=== PATIENT | female | born 1955 | race Caucasian/White ===

== ENCOUNTER 2017-06-28 05:52 | Day surgery (SDC) | payer BC ==
[~2017-06-28] VITALS: Ht 170.2 cm; Wt 83.5 kg
[~2017-06-28 05:52] MED LIST: LEVA500T PO; RIVA15 PO; RIVA20 PO
[2017-06-28] MEDS ORDERED: IOHEXOL 350 MG/ML 50 ML BTL (for Cath Lab) OTHER ONE (05:53)
[2017-06-28 06:45] VITALS: BP 132/65; PULSE 67; RESP 20; O2SAT 98
--- NOTE | 2017-06-28 07:21 | HHI.HP ---
History of Present Illness Chief Complaint: DVT/PE and need for podiatric surgery History of Present Illness 62 yo female with h/o L LE orthopedic injury and scheduled for L complex podiatric procedure. 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 Her prior DVT/PE events were provoked (around surgery). Presents for IVCF placement, which will tentatively be retrievable. Past/Family/Social History Past Medical History orthopedic injury DVT/PE Past Surgical History podiatric procedure Social History nonsmoker Family History no significant DVT/PE Home Medications Active Scripts Levofloxacin (Levaquin 500 Mg Tab) 500 Mg Tab, 500 MG PO DAILY for infection for 5 Days, TAB 0 Refills Prov:Yakelin Salazar MD 04/28/16 Rivaroxaban (Xarelto 20 Mg Tab) 20 Mg Tab, 20 MG PO DAILY for pe for 30 Days, TAB 0 Refills Prov:Yakelin Salazar MD 04/28/16 Rivaroxaban (Xarelto 15 Mg Tab) 15 Mg Tab, 15 MG PO BID for pe for 21 Days, TAB 0 Refills Prov:Yakelin Salazar MD 04/28/16 Coded Allergies: morphine (Unverified Allergy, Unknown, 04/17/17) Review of Systems Constitutional: DENIES: Fever, Chills Cardiovascular: DENIES: Chest pain Physical Exam Neuro: alert, oriented, no distress HEENT: NC/AT; anicteric sclera Neck: no JVD Heart: reg rate Lungs: nonlabored breathing Abdomen: nontender Caprini VTE Risk Assessment Caprini VTE Risk Assessment: No/Low Risk (score <= 1) Caprini Risk Assessment Model Point Value = 1 Point Value = 2 Point Value = 3 Point Value = 5 Age 41-60 Minor surgery BMI > 25 kg/m2 Swollen legs Varicose veins or History of unexplained or recurrent spontaneous Oral contraceptives or hormone replacement Sepsis (< 1 month) Serious lung disease, including pneumonia (< 1 month) Abnormal pulmonary function Acute myocardial infarction Congestive heart failure (< 1 month) History of inflammatory bowel disease Medical patient at bed rest Age 61-74 Arthroscopic surgery Major open surgery (> 45 min) Laparoscopic surgery (> 45 min) Malignancy Confined to bed (> 72 hours) Immobilizing plaster cast Central venous access Age >= 75 History of VTE Family history of VTE Factor V Leiden Prothrombin [id number] Lupus anticoagulant Anticardiolipin antibodies Elevated serum homocysteine Heparin-induced thrombocytopenia Other congenital or acquired thrombophilia Stroke (< 1 month) Elective arthroplasty Hip, pelvis, or leg fracture Acute spinal cord injury (< 1 month) Prophylaxis Regimen Total Risk Factor Score Risk Level Prophylaxis Regimen 0-1 Low Early ambulation 2 Moderate Order ONE of the following: *Sequential Compression Device (SCD) *Heparin 5000 units SQ BID 3-4 Higher Order ONE of the following medications: *Heparin 5000 units SQ TID *Enoxaparin/Lovenox 40 mg SQ daily (WT < 150 kg, CrCl > 30 mL/min) *Enoxaparin/Lovenox 30 mg SQ daily (WT < 150 kg, CrCl > 10-29 mL/min) *Enoxaparin/Lovenox 30 mg SQ BID (WT < 150 kg, CrCl > 30 mL/min) AND/OR *Sequential Compression Device (SCD) 5 or more Highest Order ONE of the following medications: *Heparin 5000 units SQ TID (Preferred with Epidurals) *Enoxaparin/Lovenox 40 mg SQ daily (WT < 150 kg, CrCl > 30 mL/min) *Enoxaparin/Lovenox 30 mg SQ daily (WT < 150 kg, CrCl > 10-29 mL/min) *Enoxaparin/Lovenox 30 mg SQ BID (WT < 150 kg, CrCl > 30 mL/min) AND *Sequential Compression Device (SCD) Assessment and Plan Plan Plan for prophylactic IVCF prior to podiatric procedure with prolonged anticipated immobility in a lady with prior provoked DVT/PE. Rashaun Meade MD Jun 28, 2017 07:21
[2017-06-28] MEDS ORDERED: XARE15TA PO (07:37)
[2017-06-28] MEDS ORDERED: HEPARIN-NS/PF INJ 1,000 ML ONE (08:01)
[2017-06-28] MEDS ORDERED: HEPARIN SODIUM - IV 10,000 UNITS/10 ML VIAL ONE (08:02)
[2017-06-28] MEDS ORDERED: MIDAZOLAM HCL 2 MG/2 ML VIAL ONE (08:02)
[2017-06-28] MEDS ORDERED: ceFAZolin INJ 1,000 MG VIAL ONE (08:18)
--- NOTE | 2017-06-28 08:52 | CATHPROC ---
[employer] HIS Report Study Information Study Number Admission Scheduled Start Study Start [id number] Jun 28 2017 5:52AM 06/28/2017 Jun 28 2017 8:05AM [place] [facility] Cath Endovascular Study Admit Source Facility Department Emergency department [facility] - Plumbing Installer Physician and Clinical Staff Initial Rashaun Tao Svp Digital Ad Sales Kymberly Rosas,RN Recorder Markos Barriga,RT(R) ScrMarian Varner,RT(R) (BS) Procedures Performed Procedure Location (Site) Vessel Name Wire insertion Fem Vein (right) Femoral Vein Equipment Time Securities Adviser Description Size Mfg Part Number Used/Scraped INTRODUCER SET, 08:10 [employer]. FR 5 [id number] *[id number] Used MICROPUNCTURE, STIFFENED FILTER, CELECT INUPIAT VENA 08:29 COOK/EZEKIEL FR 7 [id number] Used CAVA WIRE, STORQ STANDARD MOD J [id number] 08:21 CORDIS/ EZEKIEL 300CM Used 300CM *[id number] *[id number] 08:10 [employer] INDUSTRIES PACK, CCL CUSTOM * Used *[id number] 08:10 [employer] MEDICAL PRESSURE TUBING 48" 48" [id number] 08:10 Fate TherapeuticsIC TUBING, HIGH PRESSURE 20" 20" Used *[id number] 08:10 NYCOMED OMNIPAQUE, 300 MG, 150ML 150ML [id number] Used 08:10 NYCOMED OMNIPAQUE, 300 MG, 50ML 50ML [id number] Used [id number] 08:10 O[employer]ED[employer] MEDICAL BLANKET,WARM AIR CCL * Used *[id number] Equipment Model, Serial, Lot Number and Expiration Data Description Model Number Serial Number Lot Number Expiration Date FILTER, CELECT INUPIAT VENA [id number] 03-02-2018 CAVA History: Allergies Allergy Reaction morphine Medication Medication Total Dose (Bolus/Oral) Medication Total Dosage/Unit 1% XYLOCAINE 20 mL FENTANYL 25 mcg VERSED 1 mg Medications (Bolus/Oral) Medication Time Given Dosage/Unit Administered By Reason 1% XYLOCAINE 06/28/2017 8:16:35 AM 20 mL Rashaun Meade 20 mL 1% XYLOCAINE given in lab by Rashaun Meade in Right Groin via Subcutaneous. Ordered by Rashaun Meade. VERSED 06/28/2017 8:18:45 AM 1 mg Kymberly Rosas 1 mg VERSED given in lab by Kymberly Rosas RN in Left Antecubital via Peripheral IV. Ordered by Rashaun Martinez. FENTANYL 06/28/2017 8:19:34 AM 25 mcg Kymberly Rosas 25 mcg FENTANYL given in lab by Kymberly Rosas RN in Left Antecubital via Peripheral IV. Ordered by Rashaun Meade. Medication (Drip) Medication Time Given Dosage/Unit Concentration/Unit Diluent (ml) Solution ANCEF 06/28/2017 8:21:40 AM 2 g 2 g ANCEF given in lab by Kymberly Rosas RN via Peripheral IV. Ordered by Rashaun Meade. IV Solutions 06/28/2017 8:15:21 AM 0 mL (IV) 500 NaCl .9 Patient arrived on IV Solutions given by Rashaun Meade in Left Antecubital via Peripheral IV. Pump/D rip Flow = 20 ml/hr using NaCl .9. Ordered by Rashaun Meade. Initial Case Assessment Cardiovascular HR Rhythm NIBP Chest Pain 73 sr 129/45 0 Edema Present Skin color Skin None Normal Warm Dry Circulatory - Right Pulses Dorsalis Pedis Femoral 2 2 Scale (0,1,2,3,4,d) Circulatory - Left Pulses Dorsalis Pedis Femoral 2 2 Scale (0,1,2,3,4,d) Neurological State Oriented to time-place- Alert Moves all extremities person Respiration - General Respiration Rate SpO2 (%) O2 (lpm) (B/min) 18 99 0 Chronological Log Time Study Chronological Log 8:05:27 Patient arrived via Bed. 8:05:28 Patient Name, D.O.B, / Armband Verified By R.N. 8:05:30 Consent signed by the physician and the patient and verified by the Plumbing Installer staff. 8:05:31 Pre-op and post- op instructions given; patient acknowledges understanding of instructions. 8:09:40 Reference ECG taken Vitals capture started with the following parameters, Patient=Adult, Interval=5 min, Initial Pr cgyaty=991 mmHg, 8:12:50 Deflation Rate=5 mmHg, Cuff placed on Right Arm 8:13:31 HR=77 bpm, LQMP=068/45 mmhg, SpO2=98.0 %, Resp=11 B/min, Bell=2 8:13:58 Presedation assessment performed by Plumbing Installer RN. 8:14:22 Patient has been NPO for More than 6Hrs. 8:14:24 Skin Breakdown-none present per patient 8:14:41 A # 20 IV was noted in the Antecubital (left). Grade = 0 Patient arrived on IV Solutions given by Rashaun Meade in Left Antecubital via Peripheral IV. Pump/Drip Flow = 20 ml/hr 8:15:21 using NaCl .9. Ordered by Rashaun Meade. 8:15:42 History and physical on the chart or being dictated. Assessment: Initial Case, HR=73 BPM, Rhythm=sr, HSOY=293/45 mmhg, Chest Pain=0, Edema=None, Col or=Normal, Skin = Warm, Dry Right Pulses: Romain Ped=2, Femoral=2 8:15:44 Left Pulses: Romain Ped=2, Femoral=2 Neurological: State=Alert, Ox3, BAEZ Respiration: Resp=18 B/min, SpO2=99 %, O2=0 lpm 8:16:09 Bilateral groins prepped with 2% chlorhexidine, and draped after a 3 minute waiting time. Time Out. Correct patient, correct procedure, correct physician, power injector loaded, or not l oaded with contrast with 8:16:23 surgical team present. Time Out Concurred by MD and individual staff in procedure. 8:16:28 Case Start 8:16:29 Verbal Stimulation=2 Physical Stimulation=2 Airway=2 Respiration=2 TOTAL=8. (0=absent, 1=farr ited, 2=present) 8:16:35 20 mL 1% XYLOCAINE given in lab by Rashaun Meade in Right Groin via Subcutaneous. Ordered Rashaun Hester. 8:16:46 Access site was Right Femoral Vein. 8:18:30 HR=77 bpm, VFON=104/51 mmhg, SpO2=98.0 %, Resp=15 B/min, Bell=2 8:18:45 1 mg VERSED given in lab by Kymberly Rosas, CATHERINE in Left Antecubital via Peripheral IV. Order ed by Rashaun Meade. 8:19:34 25 mcg FENTANYL given in lab by Kymberly Rosas, CATHERINE in Left Antecubital via Peripheral IV. O rdered by Rashaun Meade. 8:20:22 A WIRE, STORQ STANDARD MOD J 300CM 300CM was inserted via Fem Vein (right). 8:21:40 2 g ANCEF given in lab by Kymberly Rosas RN via Peripheral IV. Ordered by Rashaun Meade. A SHEATH, FR8.5 JAMIE 11CM FR 8 was exchanged in the Fem Vein (right). This was necessary in or liss to 8:22:50 accomodate a larger catheter. IVC 8:23:31 HR=74 bpm, QUVA=426/57 mmhg, SpO2=97.0 %, Resp=20 B/min, Bell=2 8:28:30 HR=74 bpm, QDRA=809/53 mmhg, SpO2=96.0 %, Resp=29 B/min, Bell=2 8:30:47 A catheter was advanced over a wire. contrast was used for injections. .035 Ivus catheter in serted. 8:31:20 .035 IVUS catheter in use in IVC 8:32:59 IVUS Catheter was removed 8:33:27 HR=70 bpm, RLDG=063/55 mmhg, SpO2=97.0 %, Resp=17 B/min, Bell=2 A sheath was exchanged in the Fem Vein (right). This was necessary in order to accomodate a larg er catheter. IVC 8:34:46 Filter sheath inserted. 8:35:25 A FILTER, CELECT INUPIAT VENA CAVA FR 7 was placed in the IVC. 8:38:28 HR=69 bpm, IQQO=184/46 mmhg, SpO2=97.0 %, Resp=15 B/min, Bell=2 8:38:40 Sheath removed; pressure applied to access site. 8:39:24 Case End 8:43:29 HR=67 bpm, WHIZ=562/49 mmhg, SpO2=96.0 %, Resp=16 B/min, Bell=2 8:45:57 Sterile dressing applied to site 8:45:59 No case complications noted. 8:46:01 Cine recording checked. 8:46:04 Implantable Device card placed in patient's chart. 8:46:09 Contrast Scanned 8:47:10 Patient moved to stretcher 8:48:20 Vitals capture stopped. 8:50:02 Patient moved to stretcher End Study - Contrast Media Used In Study Contrast Total Opened (mL) Total Used (mL) Total Wasted (mL) Omnipaque 35 35 0 End Study - Radiation Exposure Fluoro Time (minutes) 2.6 End Study - Patient Disposition Complications Transferred To No Telemetry Bed
--- NOTE | 2017-06-28 08:52 | CATHPROC ---
[facility] HIS Report Study Information Study Number Admission Scheduled Start Study Start [id number] Jun 28 2017 5:52AM 06/28/2017 Jun 28 2017 8:05AM [place] [facility] Cath Endovascular Study Admit Source Facility Department Emergency department [facility] - Blowing Engineer Physician and Clinical Staff Initial Rashaun Tao Heel Attacher Kymberly Rosas,RN Recorder Markos Barriga,RT(R) ScrMarian Varner,RT(R) (BS) Procedures Performed Procedure Location (Site) Vessel Name Wire insertion Fem Vein (right) Femoral Vein Equipment Time Digital Court Reporter Description Size Mfg Part Number Used/Scraped INTRODUCER SET, 08:10 [employer] FR 5 [id number] *[id number] Used MICROPUNCTURE, STIFFENED FILTER, CELECT [place] VENA 08:29 COOK/EZEKEIL FR 7 [id number] Used CAVA WIRE, STORQ STANDARD MOD J [id number] 08:21 CORDIS/ EZEKIEL 300CM Used 300CM *[id number] *[id number] 08:10 [employer] INDUSTRIES PACK, CCL CUSTOM * Used *[id number] 08:10 [employer] MEDICAL PRESSURE TUBING 48" 48" [id number] Used [id number] 08:10 [employer] TUBING, HIGH PRESSURE 20" 20" Used *[id number] 08:10 NYCOMED OMNIPAQUE, 300 MG, 150ML 150ML [id number] Used 08:10 NYCOMED OMNIPAQUE, 300 MG, 50ML 50ML [id number] Used [id number] 08:10 [employer] MEDICAL BLANKET,WARM AIR CCL * Used *[id number] Equipment Model, Serial, Lot Number and Expiration Data Description Model Number Serial Number Lot Number Expiration Date FILTER, CELECT [place]ATAWBA VENA [id number] 03-02-2018 CAVA History: Allergies Allergy Reaction morphine Medication Medication Total Dose (Bolus/Oral) Medication Total Dosage/Unit 1% XYLOCAINE 20 mL FENTANYL 25 mcg VERSED 1 mg Medications (Bolus/Oral) Medication Time Given Dosage/Unit Administered By Reason 1% XYLOCAINE 06/28/2017 8:16:35 AM 20 mL Rashaun Meade 20 mL 1% XYLOCAINE given in lab by Rashaun Meade in Right Groin via Subcutaneous. Ordered by Rashaun Meade. VERSED 06/28/2017 8:18:45 AM 1 mg Kymberly Rosas 1 mg VERSED given in lab by Kymberly Rosas RN in Left Antecubital via Peripheral IV. Ordered by Rashaun Martinez. FENTANYL 06/28/2017 8:19:34 AM 25 mcg Kymberly Rosas 25 mcg FENTANYL given in lab by Kymberly Rosas RN in Left Antecubital via Peripheral IV. Ordered by Rashaun Meade. Medication (Drip) Medication Time Given Dosage/Unit Concentration/Unit Diluent (ml) Solution ANCEF 06/28/2017 8:21:40 AM 2 g 2 g ANCEF given in lab by Kymberly Rosas RN via Peripheral IV. Ordered by Rashaun Meade. IV Solutions 06/28/2017 8:15:21 AM 0 mL (IV) 500 NaCl .9 Patient arrived on IV Solutions given by Rashaun Meade in Left Antecubital via Peripheral IV. Pump/D rip Flow = 20 ml/hr using NaCl .9. Ordered by Rashaun Meade. Initial Case Assessment Cardiovascular HR Rhythm NIBP Chest Pain 73 sr 129/45 0 Edema Present Skin color Skin None Normal Warm Dry Circulatory - Right Pulses Dorsalis Pedis Femoral 2 2 Scale (0,1,2,3,4,d) Circulatory - Left Pulses Dorsalis Pedis Femoral 2 2 Scale (0,1,2,3,4,d) Neurological State Oriented to time-place- Alert Moves all extremities person Respiration - General Respiration Rate SpO2 (%) O2 (lpm) (B/min) 18 99 0 Chronological Log Time Study Chronological Log 8:05:27 Patient arrived via Bed. 8:05:28 Patient Name, D.O.B, / Armband Verified By R.N. 8:05:30 Consent signed by the physician and the patient and verified by the Blowing Engineer staff. 8:05:31 Pre-op and post- op instructions given; patient acknowledges understanding of instructions. 8:09:40 Reference ECG taken Vitals capture started with the following parameters, Patient=Adult, Interval=5 min, Initial Pr onqddj=399 mmHg, 8:12:50 Deflation Rate=5 mmHg, Cuff placed on Right Arm 8:13:31 HR=77 bpm, KSZG=613/45 mmhg, SpO2=98.0 %, Resp=11 B/min, Bell=2 8:13:58 Presedation assessment performed by Blowing Engineer RN. 8:14:22 Patient has been NPO for More than 6Hrs. 8:14:24 Skin Breakdown-none present per patient 8:14:41 A # 20 IV was noted in the Antecubital (left). Grade = 0 Patient arrived on IV Solutions given by Rashaun Meade in Left Antecubital via Peripheral IV. Pump/Drip Flow = 20 ml/hr 8:15:21 using NaCl .9. Ordered by Rashaun Meade. 8:15:42 History and physical on the chart or being dictated. Assessment: Initial Case, HR=73 BPM, Rhythm=sr, GEBQ=703/45 mmhg, Chest Pain=0, Edema=None, Col or=Normal, Skin = Warm, Dry Right Pulses: Romain Ped=2, Femoral=2 8:15:44 Left Pulses: Romain Ped=2, Femoral=2 Neurological: State=Alert, Ox3, BAEZ Respiration: Resp=18 B/min, SpO2=99 %, O2=0 lpm 8:16:09 Bilateral groins prepped with 2% chlorhexidine, and draped after a 3 minute waiting time. Time Out. Correct patient, correct procedure, correct physician, power injector loaded, or not l oaded with contrast with 8:16:23 surgical team present. Time Out Concurred by MD and individual staff in procedure. 8:16:28 Case Start 8:16:29 Verbal Stimulation=2 Physical Stimulation=2 Airway=2 Respiration=2 TOTAL=8. (0=absent, 1=farr ited, 2=present) 8:16:35 20 mL 1% XYLOCAINE given in lab by Rashaun Meade in Right Groin via Subcutaneous. Ordered Rashaun Hester. 8:16:46 Access site was Right Femoral Vein. 8:18:30 HR=77 bpm, AICD=971/51 mmhg, SpO2=98.0 %, Resp=15 B/min, Bell=2 8:18:45 1 mg VERSED given in lab by Kymberly Rosas, CATHERINE in Left Antecubital via Peripheral IV. Order ed by Rashaun Meade. 8:19:34 25 mcg FENTANYL given in lab by Kymberly Rosas, CATHERINE in Left Antecubital via Peripheral IV. O rdered by Rashaun Meade. 8:20:22 A WIRE, STORQ STANDARD MOD J 300CM 300CM was inserted via Fem Vein (right). 8:21:40 2 g ANCEF given in lab by Kymberly Rosas RN via Peripheral IV. Ordered by Rashaun Meade. A SHEATH, FR8.5 JAMIE 11CM FR 8 was exchanged in the Fem Vein (right). This was necessary in or liss to 8:22:50 accomodate a larger catheter. IVC 8:23:31 HR=74 bpm, EWUS=249/57 mmhg, SpO2=97.0 %, Resp=20 B/min, Bell=2 8:28:30 HR=74 bpm, VFSW=460/53 mmhg, SpO2=96.0 %, Resp=29 B/min, Bell=2 8:30:47 A catheter was advanced over a wire. contrast was used for injections. .035 Ivus catheter in serted. 8:31:20 .035 IVUS catheter in use in IVC 8:32:59 IVUS Catheter was removed 8:33:27 HR=70 bpm, FLAN=591/55 mmhg, SpO2=97.0 %, Resp=17 B/min, Bell=2 A sheath was exchanged in the Fem Vein (right). This was necessary in order to accomodate a larg er catheter. IVC 8:34:46 Filter sheath inserted. 8:35:25 A FILTER, CELECT CATAWBA VENA CAVA FR 7 was placed in the IVC. 8:38:28 HR=69 bpm, DYVT=625/46 mmhg, SpO2=97.0 %, Resp=15 B/min, Bell=2 8:38:40 Sheath removed; pressure applied to access site. 8:39:24 Case End 8:43:29 HR=67 bpm, JELF=281/49 mmhg, SpO2=96.0 %, Resp=16 B/min, Bell=2 8:45:57 Sterile dressing applied to site 8:45:59 No case complications noted. 8:46:01 Cine recording checked. 8:46:04 Implantable Device card placed in patient's chart. 8:46:09 Contrast Scanned 8:47:10 Patient moved to stretcher 8:48:20 Vitals capture stopped. 8:50:02 Patient moved to stretcher End Study - Contrast Media Used In Study Contrast Total Opened (mL) Total Used (mL) Total Wasted (mL) Omnipaque 35 35 0 End Study - Radiation Exposure Fluoro Time (minutes) 2.6 End Study - Patient Disposition Complications Transferred To No Telemetry Bed
--- NOTE | 2017-06-28 08:52 | CATHPROC ---
[employer] HIS Report Study Information Study Number Admission Scheduled Start Study Start [id number] Jun 28 2017 5:52AM 06/28/2017 Jun 28 2017 8:05AM [place] Service Cath Endovascular Study Admit Source Facility Department Emergency department [facility] - Plate Painter Physician and Clinical Staff Initial Rashaun Tao Career Placement Services Counselor Kymberly Rosas,RN Recorder Markos Barriga,RT(R) ScrMarian Varner,RT(R) (BS) Procedures Performed Procedure Location (Site) Vessel Name Wire insertion Fem Vein (right) Femoral Vein Equipment Time Civil Technician Description Size Mfg Part Number Used/Scraped INTRODUCER SET, 08:10 [employer] FR 5 [id number] *[id number] Used MICROPUNCTURE, STIFFENED FILTER, CELECT [place] VENA 08:29 COOK/EZEKIEL FR 7 [id number] Used CAVA WIRE, STORQ STANDARD MOD J [id number] 08:21 CORDIS/ EZEKIEL 300CM Used 300CM *[id number] *[id number] 08:10 [employer] INDUSTRIES PACK, CCL CUSTOM * Used *[id number] 08:10 [employer] MEDICAL PRESSURE TUBING 48" 48" [id number] Used [id number] 08:10 [employer] TUBING, HIGH PRESSURE 20" 20" Used *[id number] 08:10 [employer] OMNIPAQUE, 300 MG, 150ML 150ML [id number] Used 08:10 NYCOMED OMNIPAQUE, 300 MG, 50ML 50ML [id number] Used [id number] 08:10 [employer] MEDICAL BLANKET,WARM AIR CCL * Used *[id number] Equipment Model, Serial, Lot Number and Expiration Data Description Model Number Serial Number Lot Number Expiration Date FILTER, CELECT [place] VENA [id number] 03-02-2018 CAVA History: Allergies Allergy Reaction morphine Medication Medication Total Dose (Bolus/Oral) Medication Total Dosage/Unit 1% XYLOCAINE 20 mL FENTANYL 25 mcg VERSED 1 mg Medications (Bolus/Oral) Medication Time Given Dosage/Unit Administered By Reason 1% XYLOCAINE 06/28/2017 8:16:35 AM 20 mL Rashaun Meade 20 mL 1% XYLOCAINE given in lab by Rashaun Meade in Right Groin via Subcutaneous. Ordered by Rashaun Meade. VERSED 06/28/2017 8:18:45 AM 1 mg Kymberly Rosas 1 mg VERSED given in lab by Kymberly Rosas RN in Left Antecubital via Peripheral IV. Ordered by Rashaun Martinez. FENTANYL 06/28/2017 8:19:34 AM 25 mcg Kymberly Rosas 25 mcg FENTANYL given in lab by Kymberly Rosas RN in Left Antecubital via Peripheral IV. Ordered by Rashaun Meade. Medication (Drip) Medication Time Given Dosage/Unit Concentration/Unit Diluent (ml) Solution ANCEF 06/28/2017 8:21:40 AM 2 g 2 g ANCEF given in lab by Kymberly Rosas RN via Peripheral IV. Ordered by Rashaun Meade. IV Solutions 06/28/2017 8:15:21 AM 0 mL (IV) 500 NaCl .9 Patient arrived on IV Solutions given by Rashaun Meade in Left Antecubital via Peripheral IV. Pump/D rip Flow = 20 ml/hr using NaCl .9. Ordered by Rashaun Meade. Initial Case Assessment Cardiovascular HR Rhythm NIBP Chest Pain 73 sr 129/45 0 Edema Present Skin color Skin None Normal Warm Dry Circulatory - Right Pulses Dorsalis Pedis Femoral 2 2 Scale (0,1,2,3,4,d) Circulatory - Left Pulses Dorsalis Pedis Femoral 2 2 Scale (0,1,2,3,4,d) Neurological State Oriented to time-place- Alert Moves all extremities person Respiration - General Respiration Rate SpO2 (%) O2 (lpm) (B/min) 18 99 0 Chronological Log Time Study Chronological Log 8:05:27 Patient arrived via Bed. 8:05:28 Patient Name, D.O.B, / Armband Verified By R.N. 8:05:30 Consent signed by the physician and the patient and verified by the Plate Painter staff. 8:05:31 Pre-op and post- op instructions given; patient acknowledges understanding of instructions. 8:09:40 Reference ECG taken Vitals capture started with the following parameters, Patient=Adult, Interval=5 min, Initial Pr wmxjcl=676 mmHg, 8:12:50 Deflation Rate=5 mmHg, Cuff placed on Right Arm 8:13:31 HR=77 bpm, IWGZ=954/45 mmhg, SpO2=98.0 %, Resp=11 B/min, Bell=2 8:13:58 Presedation assessment performed by Plate Painter RN. 8:14:22 Patient has been NPO for More than 6Hrs. 8:14:24 Skin Breakdown-none present per patient 8:14:41 A # 20 IV was noted in the Antecubital (left). Grade = 0 Patient arrived on IV Solutions given by Rashaun Meade in Left Antecubital via Peripheral IV. Pump/Drip Flow = 20 ml/hr 8:15:21 using NaCl .9. Ordered by Rashaun Meade. 8:15:42 History and physical on the chart or being dictated. Assessment: Initial Case, HR=73 BPM, Rhythm=sr, HWCV=988/45 mmhg, Chest Pain=0, Edema=None, Col or=Normal, Skin = Warm, Dry Right Pulses: Romain Ped=2, Femoral=2 8:15:44 Left Pulses: Romain Ped=2, Femoral=2 Neurological: State=Alert, Ox3, BAEZ Respiration: Resp=18 B/min, SpO2=99 %, O2=0 lpm 8:16:09 Bilateral groins prepped with 2% chlorhexidine, and draped after a 3 minute waiting time. Time Out. Correct patient, correct procedure, correct physician, power injector loaded, or not l oaded with contrast with 8:16:23 surgical team present. Time Out Concurred by MD and individual staff in procedure. 8:16:28 Case Start 8:16:29 Verbal Stimulation=2 Physical Stimulation=2 Airway=2 Respiration=2 TOTAL=8. (0=absent, 1=farr ited, 2=present) 8:16:35 20 mL 1% XYLOCAINE given in lab by Rashaun Meade in Right Groin via Subcutaneous. Ordered Rashaun Hester. 8:16:46 Access site was Right Femoral Vein. 8:18:30 HR=77 bpm, QEJP=991/51 mmhg, SpO2=98.0 %, Resp=15 B/min, Bell=2 8:18:45 1 mg VERSED given in lab by Kymberly Rosas, CATHERINE in Left Antecubital via Peripheral IV. Order ed by Rashaun Meade. 8:19:34 25 mcg FENTANYL given in lab by Kymberly Rosas, CATHERINE in Left Antecubital via Peripheral IV. O rdered by Rashaun Meade. 8:20:22 A WIRE, STORQ STANDARD MOD J 300CM 300CM was inserted via Fem Vein (right). 8:21:40 2 g ANCEF given in lab by Kymberly Rosas RN via Peripheral IV. Ordered by Rashaun Meade. A SHEATH, FR8.5 JAMIE 11CM FR 8 was exchanged in the Fem Vein (right). This was necessary in or liss to 8:22:50 accomodate a larger catheter. IVC 8:23:31 HR=74 bpm, ZXYH=196/57 mmhg, SpO2=97.0 %, Resp=20 B/min, Bell=2 8:28:30 HR=74 bpm, UEEH=832/53 mmhg, SpO2=96.0 %, Resp=29 B/min, Bell=2 8:30:47 A catheter was advanced over a wire. contrast was used for injections. .035 Ivus catheter in serted. 8:31:20 .035 IVUS catheter in use in IVC 8:32:59 IVUS Catheter was removed 8:33:27 HR=70 bpm, FRYY=825/55 mmhg, SpO2=97.0 %, Resp=17 B/min, Bell=2 A sheath was exchanged in the Fem Vein (right). This was necessary in order to accomodate a larg er catheter. IVC 8:34:46 Filter sheath inserted. 8:35:25 A FILTER, CELECT [place] VENA CAVA FR 7 was placed in the IVC. 8:38:28 HR=69 bpm, BFAC=702/46 mmhg, SpO2=97.0 %, Resp=15 B/min, Bell=2 8:38:40 Sheath removed; pressure applied to access site. 8:39:24 Case End 8:43:29 HR=67 bpm, AMAE=593/49 mmhg, SpO2=96.0 %, Resp=16 B/min, Bell=2 8:45:57 Sterile dressing applied to site 8:45:59 No case complications noted. 8:46:01 Cine recording checked. 8:46:04 Implantable Device card placed in patient's chart. 8:46:09 Contrast Scanned 8:47:10 Patient moved to stretcher 8:48:20 Vitals capture stopped. 8:50:02 Patient moved to stretcher End Study - Contrast Media Used In Study Contrast Total Opened (mL) Total Used (mL) Total Wasted (mL) Omnipaque 35 35 0 End Study - Radiation Exposure Fluoro Time (minutes) 2.6 End Study - Patient Disposition Complications Transferred To No Telemetry Bed
--- NOTE | 2017-06-28 08:57 | HHI.PR ---
cc: Waldemar Buchanan DPM Immediate Post Op Note Procedure Date: Jun 28, 2017 Pre Op Diagnosis: DVT/PE and need for major foot surgery Post Op Diagnosis: same Surgeon: Rashaun Meade Passenger Service Manager(s): none Procedure: 1. IVC filter placement 2. IVUS Findings: filter placed infrarenally Complications: none Specimen(s) removed: none Estimated blood loss: 5mL Drains: None Fluids: 200mL IVF Patient to: Other (DOCU) Patient Condition: Good Implant/Devices: SEE IMPLANT LOG (if applicable) Date/Time of Procedure: SEE SURGICAL CARE RECORD Rashaun Meade MD Jun 28, 2017 08:57
--- NOTE | 2017-06-28 13:17 | MP ---
cc: RASHAUN MEADE MD DATE OF SURGERY 06/28/2017 PREOPERATIVE DIAGNOSIS DVT, PE and need for orthopedic surgery. POSTOPERATIVE DIAGNOSIS DVT, PE and need for orthopedic surgery. PROCEDURE 1. Intravascular ultrasound of the inferior vena cava. 2. IVC filter placement. ATTENDING SURGEON Rashaun Meade MD RESIDENT/WAREHOUSE REPRESENTATIVE SURGEON None. ANESTHESIA Local with sedation. INDICATIONS Ms. Branham is a 62-year-old lady who has a DVT and a PE. They were both provoked. She was on life-long anticoagulation. She needs major podiatric surgery and will have prolonged immobilization. Based on her constellation of risk factors, we offered her a prophylactic retrieval IVC filter. Intraoperatively the venacavogram showed that the patient had an enlarged IVC and so an intravascular ultrasound was performed to determine the true diameter of the inferior vena cava. DESCRIPTION OF PROCEDURE Informed consent was obtained. The patient was taken to the operating room and placed supine on the operating room table. An appropriate time-out was taken to identify the patient, the operative site and the planned procedure. The Ancef will be discontinued after a single preoperative dose. Everyone in the room agreed with the time-out and we proceeded. Her bilateral groins were prepped and draped and the right groin was anesthetized with 1% lidocaine. A 21-gauge micropuncture needle was used to access the right common femoral vein. This was exchanged using Seldinger technique for the micropuncture sheath through which a 0.035 Stork wire was introduced and the micropuncture sheath was exchanged for the Cook Celect filter deployment sheath. This was positioned up in the inferior vena cava and a venacavogram obtained. The venacavogram showed the vena cava to be wide and appeared to be wider than 30 mm. As such, the filter sheath was removed and an 8-East [place]orese sheath was introduced and intravascular ultrasound catheter was placed. Images of the inferior vena cava were obtained and found the diameter was indeed 28 mm. The IVUS catheters and the 8-[place]orese sheath were removed and the filter sheath was reintroduced and the filter was deployed without difficulty. Completion venacavogram showed the filter to be in an infrarenal location. The catheter and sheath were removed, pressure held for hemostasis. There were no complications. I was present and scrubbed and performed the entire procedure. MD HERNESTO Schmitz/SSB /8:59 AM /1:00 PM
--- NOTE | 2017-06-28 13:17 | MP ---
cc: RASHAUN MEADE MD DATE OF SURGERY 06/28/2017 PREOPERATIVE DIAGNOSIS DVT, PE and need for orthopedic surgery. POSTOPERATIVE DIAGNOSIS DVT, PE and need for orthopedic surgery. PROCEDURE 1. Intravascular ultrasound of the inferior vena cava. 2. IVC filter placement. ATTENDING SURGEON Rashaun Meade MD RESIDENT/GROUND PRODUCTS DIRECTOR SURGEON None. ANESTHESIA Local with sedation. INDICATIONS Ms. Branham is a 62-year-old lady who has a DVT and a PE. They were both provoked. She was on life-long anticoagulation. She needs major podiatric surgery and will have prolonged immobilization. Based on her constellation of risk factors, we offered her a prophylactic retrieval IVC filter. Intraoperatively the venacavogram showed that the patient had an enlarged IVC and so an intravascular ultrasound was performed to determine the true diameter of the inferior vena cava. DESCRIPTION OF PROCEDURE Informed consent was obtained. The patient was taken to the operating room and placed supine on the operating room table. An appropriate time-out was taken to identify the patient, the operative site and the planned procedure. The Ancef will be discontinued after a single preoperative dose. Everyone in the room agreed with the time-out and we proceeded. Her bilateral groins were prepped and draped and the right groin was anesthetized with 1% lidocaine. A 21-gauge micropuncture needle was used to access the right common femoral vein. This was exchanged using Seldinger technique for the micropuncture sheath through which a 0.035 Stork wire was introduced and the micropuncture sheath was exchanged for the Cook Celect filter deployment sheath. This was positioned up in the inferior vena cava and a venacavogram obtained. The venacavogram showed the vena cava to be wide and appeared to be wider than 30 mm. As such, the filter sheath was removed and an 8-Bahamian sheath was introduced and intravascular ultrasound catheter was placed. Images of the inferior vena cava were obtained and found the diameter was indeed 28 mm. The IVUS catheters and the 8-Bahamian sheath were removed and the filter sheath was reintroduced and the filter was deployed without difficulty. Completion venacavogram showed the filter to be in an infrarenal location. The catheter and sheath were removed, pressure held for hemostasis. There were no complications. I was present and scrubbed and performed the entire procedure. MD HERNESTO Schmitz/SSB /8:59 AM /1:00 PM
--- NOTE | 2017-06-28 13:17 | MP ---
cc: RASHAUN MEADE MD DATE OF SURGERY 06/28/2017 PREOPERATIVE DIAGNOSIS DVT, PE and need for orthopedic surgery. POSTOPERATIVE DIAGNOSIS DVT, PE and need for orthopedic surgery. PROCEDURE 1. Intravascular ultrasound of the inferior vena cava. 2. IVC filter placement. ATTENDING SURGEON Rashaun Meade MD RESIDENT/YARDER BOSS SURGEON None. ANESTHESIA Local with sedation. INDICATIONS Ms. Branham is a 62-year-old lady who has a DVT and a PE. They were both provoked. She was on life-long anticoagulation. She needs major podiatric surgery and will have prolonged immobilization. Based on her constellation of risk factors, we offered her a prophylactic retrieval IVC filter. Intraoperatively the venacavogram showed that the patient had an enlarged IVC and so an intravascular ultrasound was performed to determine the true diameter of the inferior vena cava. DESCRIPTION OF PROCEDURE Informed consent was obtained. The patient was taken to the operating room and placed supine on the operating room table. An appropriate time-out was taken to identify the patient, the operative site and the planned procedure. The Ancef will be discontinued after a single preoperative dose. Everyone in the room agreed with the time-out and we proceeded. Her bilateral groins were prepped and draped and the right groin was anesthetized with 1% lidocaine. A 21-gauge micropuncture needle was used to access the right common femoral vein. This was exchanged using Seldinger technique for the micropuncture sheath through which a 0.035 Stork wire was introduced and the micropuncture sheath was exchanged for the Cook Celect filter deployment sheath. This was positioned up in the inferior vena cava and a venacavogram obtained. The venacavogram showed the vena cava to be wide and appeared to be wider than 30 mm. As such, the filter sheath was removed and an 8-German sheath was introduced and intravascular ultrasound catheter was placed. Images of the inferior vena cava were obtained and found the diameter was indeed 28 mm. The IVUS catheters and the 8-German sheath were removed and the filter sheath was reintroduced and the filter was deployed without difficulty. Completion venacavogram showed the filter to be in an infrarenal location. The catheter and sheath were removed, pressure held for hemostasis. There were no complications. I was present and scrubbed and performed the entire procedure. MD HERNESTO Schmitz/SSB /8:59 AM /1:00 PM
== END 2017-06-28 11:09 | disposition home or self-care (01) ==
LOC: HCAT 05:52 → HDIC 05:52 → HCAT 11:09
PROVIDERS: ATTEND Surgery
DX: Z45.2 Encounter for adjustment and management of vascular access device (principal); Z86.711 Personal history of pulmonary embolism; Z86.718 Personal history of other venous thrombosis and embolism
CPT/HCPCS: 37191; 37252; 99152; 99153; C1753; C1769; C1880; C1893; J0690; J1644; J2250; J3010; Q9967

== ENCOUNTER 2017-09-25 11:20 | Day surgery (SDC) | payer BC ==
[~2017-09-25] VITALS: Ht 170.2 cm; Wt 82.4 kg
[~2017-09-25 11:20] MED LIST changes: -LEVA500T PO; -RIVA15 PO; -RIVA20 PO; +XARE15TA PO
[2017-09-25] MEDS ORDERED: IOHEXOL 350 MG/ML 50 ML BTL (for Cath Lab) OTHER ONE (11:21)
[2017-09-25] MEDS ORDERED: CHOL10008 PO (12:40)
[2017-09-25] MEDS ORDERED: VITA250C3 CHEW (12:40)
[2017-09-25] MEDS ORDERED: CALCCHW25 CHEW (12:40)
[2017-09-25] MEDS ORDERED: VITA100T65 PO (12:40)
[2017-09-25] MEDS ORDERED: MULT-65 PO (12:40)
[2017-09-25 12:41] VITALS: BP 128/53; PULSE 61; RESP 18; TEMP 97.8; O2SAT 98
--- NOTE | 2017-09-25 12:47 | HHI.HP ---
History of Present Illness Chief Complaint: IVC filter History of Present Illness 62 yo female with 2 provoked DVTs and had IVC filter placed in preparation. Off anticoagulation. Past/Family/Social History Past Medical History OA DVT x 2 Past Surgical History podiatric surgery IVC filter insertion Social History nonsmoker Family History no VTE events Home Medications Reported Medications Cholecalciferol (Vitamin D3) 1,000 Unit Cap, 1000 UNITS PO DAILY for Nutritional Supplement, #1 BOTTLE 0 Refills 09/25/17 Multiple Vitamin (Multi-Vitamin Daily) 1 Tab Tab, 1 TAB PO DAILY for Nutritional Supplement, TAB 0 Refills 09/25/17 Ascorbic Acid (Vitamin C) 250 Mg Chew, 500 MG CHEW DAILY for Nutritional Supplement, #30 TAB 0 Refills 09/25/17 Vitamin E (Vitamin E) 100 Unit Tab, 100 UNITS PO DAILY for Nutritional Supplement, TAB 0 Refills 09/25/17 Calcium-Vitamins D & K (Calcium + D & K) 500-1,000-40 Mg-Unit-Mcg Chew, 1 TAB CHEW for Nutritional Supplement, TAB 0 Refills 09/25/17 Rivaroxaban (Xarelto) 15 Mg Tab, 15 MG PO DAILY for Blood Clot Prevention, TAB 0 Refills 06/28/17 Coded Allergies: morphine (Unverified Allergy, Unknown, 04/17/17) Review of Systems Constitutional: DENIES: Fever, Chills Respiratory: DENIES: Cough Cardiovascular: COMPLAINS OF: Claudication, DENIES: Chest pain Physical Exam Neuro: alert, oriented, no distress HEENT: NC/AT R hearing aid in place Neck: no JVD trachea midline Heart: reg rate Lungs: clear Abdomen: soft, NT Vascular: palp UE pulses Extremities: no C/C/E pending Caprini VTE Risk Assessment Caprini VTE Risk Assessment: No/Low Risk (score <= 1) Caprini Risk Assessment Model Point Value = 1 Point Value = 2 Point Value = 3 Point Value = 5 Age 41-60 Minor surgery BMI > 25 kg/m2 Swollen legs Varicose veins or History of unexplained or recurrent spontaneous Oral contraceptives or hormone replacement Sepsis (< 1 month) Serious lung disease, including pneumonia (< 1 month) Abnormal pulmonary function Acute myocardial infarction Congestive heart failure (< 1 month) History of inflammatory bowel disease Medical patient at bed rest Age 61-74 Arthroscopic surgery Major open surgery (> 45 min) Laparoscopic surgery (> 45 min) Malignancy Confined to bed (> 72 hours) Immobilizing plaster cast Central venous access Age >= 75 History of VTE Family history of VTE Factor V Leiden Prothrombin [id number] Lupus anticoagulant Anticardiolipin antibodies Elevated serum homocysteine Heparin-induced thrombocytopenia Other congenital or acquired thrombophilia Stroke (< 1 month) Elective arthroplasty Hip, pelvis, or leg fracture Acute spinal cord injury (< 1 month) Prophylaxis Regimen Total Risk Factor Score Risk Level Prophylaxis Regimen 0-1 Low Early ambulation 2 Moderate Order ONE of the following: *Sequential Compression Device (SCD) *Heparin 5000 units SQ BID 3-4 Higher Order ONE of the following medications: *Heparin 5000 units SQ TID *Enoxaparin/Lovenox 40 mg SQ daily (WT < 150 kg, CrCl > 30 mL/min) *Enoxaparin/Lovenox 30 mg SQ daily (WT < 150 kg, CrCl > 10-29 mL/min) *Enoxaparin/Lovenox 30 mg SQ BID (WT < 150 kg, CrCl > 30 mL/min) AND/OR *Sequential Compression Device (SCD) 5 or more Highest Order ONE of the following medications: *Heparin 5000 units SQ TID (Preferred with Epidurals) *Enoxaparin/Lovenox 40 mg SQ daily (WT < 150 kg, CrCl > 30 mL/min) *Enoxaparin/Lovenox 30 mg SQ daily (WT < 150 kg, CrCl > 10-29 mL/min) *Enoxaparin/Lovenox 30 mg SQ BID (WT < 150 kg, CrCl > 30 mL/min) AND *Sequential Compression Device (SCD) Assessment and Plan Plan attempt at IVC filter retrieval Pt understands risks including inability to retrieve IVCF To OR Rashaun Meade MD Sep 25, 2017 12:46
[2017-09-25] MEDS ORDERED: HEPARIN-NS/PF INJ 1,000 ML ONE (12:57)
[2017-09-25] MEDS ORDERED: MIDAZOLAM HCL 2 MG/2 ML VIAL ONE (12:58)
[2017-09-25] MEDS ORDERED: ONDANSETRON HCL 4 MG/2 ML VIAL ONE (12:59)
[2017-09-25 13:13] LABS: AUTOMATED NEUTROPHIL # 4.6 TH/MM3 (1.8-7.7); BASOPHIL % 0.5 % (0.0-2.0); EOSINOPHIL # 0.1 TH/MM3 (0-0.4); EOSINOPHIL % 1.3 % (0.0-4.0); HEMATOCRIT 44.4 % (35.0-46.0); HEMOGLOBIN 15.4 GM/DL (11.6-15.3); LYMPHOCYTE # 1.6 TH/MM3 (1.0-4.8); MEAN CELL VOLUME 93.8 FL (80.0-100.0); MEAN CORPUSCULAR HEMOGLOBIN 32.6 PG (27.0-34.0); MEAN CORPUSCULAR HGB CONC 34.8 % (32.0-36.0); MEAN PLATELET VOLUME 8.8 FL (7.0-11.0); MONO % 5.2 % (0.0-8.0); MONOCYTE # 0.3 TH/MM3 (0-0.9); PLATELET COUNT 166 TH/MM3 (150-450); RED BLOOD COUNT 4.74 MIL/MM3 (4.00-5.30); RED CELL DISTRIBUTION WIDTH 12.7 % (11.6-17.2); WHITE BLOOD COUNT 6.7 TH/MM3 (4.0-11.0)
[2017-09-25] MEDS ORDERED: SODIUM CHLOR 0.9% 1000 ML INJ 1,000 ML IV SCH (13:15)
--- NOTE | 2017-09-25 13:23 | HHI.PR ---
cc: Rashaun Meade MD; Waledmar Buchanan DPM Immediate Post Op Note Procedure Date: Sep 25, 2017 Pre Op Diagnosis: IVC filter Post Op Diagnosis: IVC filter Surgeon: Rashaun Meade Cardroom Worker(s): none Procedure: IVC filter removal Findings: patent IVC without trapped thrombus filter removed without difficulty Complications: none Specimen(s) removed: none for pathology Estimated blood loss: 5mL Anesthesia: MAC Drains: None Fluids: 200 IVF Patient to: Other (DOCU) Patient Condition: Good Date/Time of Procedure: SEE SURGICAL CARE RECORD Rashaun Meade MD Sep 25, 2017 13:22
[2017-09-25 13:38] LABS: BICARBONATE 27.4 MEQ/L (21.0-32.0); CALCIUM 8.8 MG/DL (8.5-10.1); CREATININE 0.8 MG/DL (0.50-1.00)
--- NOTE | 2017-09-26 09:39 | MP ---
cc: RASHAUN MEADE MD DATE OF SURGERY 09/25/2017 PREOPERATIVE DIAGNOSIS IVC filter POSTOPERATIVE DIAGNOSIS IVC filter PROCEDURE Inferior vena cava filter removal MEDICATIONS Rashaun Meade MD ANESTHESIA Local with sedation INDICATIONS Ms. Branham is a 62-year-old lady who has an IVC filter that was placed several months ago. She is now back on systemic and therapeutic anticoagulation. She was taken to the operating room for attempted filter retrieval. DESCRIPTION OF THE PROCEDURE Informed consent was obtained from the patient. She was taken to the operating room, placed supine on the operating room table and an appropriate time out was taken to ensure the patient's identity, operative site and planned procedure. The administration of antibiotics was not necessary because this is a clean procedure without a planned implantation of any foreign objects. Everyone in the room agreed with the time-out and we proceeded. Her right neck was prepped and draped and under ultrasonographic guidance, a 21 gauge micropuncture needle was used to access the right internal jugular vein. This was exchanged using Seldinger technique for the micropuncture sheath through which a 0.035 wire was advanced down the internal jugular vein and into the inferior vena cava. The micropuncture sheath was exchanged for a 10-Afghan dilator and then the Cook select filter retrieval sheath was then positioned down in the inferior vena cava just cephalad to the inferior vena cava filter. An inferior venacavogram showed the filter was patent and there was no trapped thrombi. A goose neck snare was then placed through the filter retrieval sheath and the hook of the filter was snared, held taut and the sheath was advanced over the over the snare thereby compressing the legs with the filter. The filter was extracted and at completion venacavogram showed the vena cava to be widely patent. The sheath was removed and pressure was held for hemostasis. There were no complications. I present, scrubbed and performed the entire procedure. MD HERNESTO Schmitz/DEVEN /5:00 AM /9:28 AM
== END 2017-09-25 15:04 | disposition home or self-care (01) ==
LOC: HDOC 11:20 → HDIC 11:23 → HDOC 15:04
PROVIDERS: ATTEND Surgery
DX: Z45.2 Encounter for adjustment and management of vascular access device (principal); I82.432 Acute embolism and thrombosis of left popliteal vein; I82.442 Acute embolism and thrombosis of left tibial vein
CPT/HCPCS: 37193; 80048; 85025; 99152; 99153; J1644; J2250; J2405; J3010; 37191; Q9967